=== PATIENT | female | born 1990 | race Two or more races ===

== ENCOUNTER 2017-08-04 08:09 | Emergency (ER) | payer BC ==
[2017-08-04 08:19] VITALS: BP 120/81
--- NOTE | 2017-08-04 08:52 | UC ---
Complaint Female HPI - HPI Summary HPI Summary: Dysuria, frequency, urgency, hematuria since yesterday. Denies fever, vomiting, or vaginal symptoms. Has had a few UTIs in the past, this feels consistent with those. - History Of Current Complaint Chief Complaint: [facility] Stated Complaint: FREQUENT,BURNING URINATION Time Seen by Provider: 08/04/17 08:17 Hx Obtained From: Patient ?: No Onset/Duration: Gradual Onset, Lasting Hours Timing: Constant Severity Initially: Moderate Severity Currently: Moderate Pain Intensity: 5 Character: Burning Aggravating Factor(s): Urination Alleviating Factor(s): Nothing Associated Signs And Symptoms: Positive: Negative - Allergies/Home Medications Allergies/Adverse Reactions: Allergies Allergy/AdvReac Type Severity Reaction Status Date / Time No Known Allergies Allergy Unverified 08/04/17 08:19 Home Medications: Home Medications Norgestimate-Ethinyl Estradiol [Trinessa Tablet] 1 each PO DAILY 08/04/17 [ History Confirmed 08/04/17] PMH/Surg Hx/FS Hx/Imm Hx Previously Healthy: Yes - Surgical History Surgical History: Yes Surgery Procedure, Year, and Place: nose - Family History Known Family History: Positive: Hypertension - Social History Occupation: Student Alcohol Use: Occasionally Substance Use Type: None Smoking Status (MU): Never Smoked Tobacco Review of Systems Constitutional: Negative Skin: Negative Eyes: Negative ENT: Negative Respiratory: Negative Cardiovascular: Negative Gastrointestinal: Negative Genitourinary: Dysuria, Hematuria, Frequency, Urgency Motor: Negative Neurovascular: Negative Musculoskeletal: Negative Neurological: Negative Psychological: Negative Is Patient Immunocompromised?: No All Other Systems Reviewed And Are Negative: Yes Physical Exam Triage Information Reviewed: Yes Appearance: Well-Appearing, No Pain Distress, Well-Nourished Vital Signs: Initial Vital Signs Temp 98.5 F 08/04/17 08:16 Pulse 77 08/04/17 08:16 Resp 18 08/04/17 08:16 BP 120/81 08/04/17 08:16 Pulse Ox 100 08/04/17 08:16 Vital Signs Reviewed: Yes Eye Exam: Normal Eyes: Positive: Conjunctiva Clear ENT Exam: Normal ENT: Positive: Normal ENT inspection, Hearing grossly normal, Pharynx normal, TMs normal Neck exam: Normal Respiratory Exam: Normal Respiratory: Positive: Chest non-tender, Lungs clear, Normal breath sounds, No respiratory distress, No accessory muscle use Cardiovascular Exam: Normal Cardiovascular: Positive: RRR, No Murmur Abdomen Description: Positive: No Organomegaly, Soft. Negative: CVA Tenderness (R), CVA Tenderness (L) Musculoskeletal Exam: Normal Neurological Exam: Normal Neurological: Positive: Alert Psychological Exam: Normal Skin Exam: Normal Complaint Female Dx - Differential Dx/Diagnosis Provider Diagnoses: UTI Discharge - Sign-Out/Discharge Documenting (check all that apply): Discharge - Discharge Plan Condition: Stable Disposition: HOME Prescriptions: Nitrofurantoin Macrocrystal [Nitrofurantoin] 100 mg PO BID #10 capsule Phenazopyridine 200 mg (NF) [Pyridium 200 MG tab *] 200 mg PO TID PRN #3 tab PRN Reason: Pain Patient Education Materials: Urinary Tract Infection in Women (ED) Referrals: Ronna Hernandez NP [Primary Care Provider] - Additional Instructions: Drink plenty of fluids. If you are not better in the next couple days call here or your primary care provider for follow-up. - Billing Disposition and Condition Condition: STABLE Disposition: HOME
--- NOTE | 2017-08-05 15:14 | UC ---
- Progress Note Progress Note: + E. Coli on urinalysis sensitivity pending pt on macrobid No change 08/05/2017 Discharge - Sign-Out/Discharge Documenting (check all that apply): Post-Discharge Follow Up - Discharge Plan Condition: Stable Disposition: HOME Prescriptions: Nitrofurantoin Macrocrystal [Nitrofurantoin] 100 mg PO BID #10 capsule Phenazopyridine 200 mg (NF) [Pyridium 200 MG tab *] 200 mg PO TID PRN #3 tab PRN Reason: Pain Patient Education Materials: Urinary Tract Infection in Women (ED) Referrals: Ronna Hernandez NP [Primary Care Provider] - Additional Instructions: Drink plenty of fluids. If you are not better in the next couple days call here or your primary care provider for follow-up. - Billing Disposition and Condition Condition: STABLE Disposition: HOME
== END 2017-08-04 08:53 | disposition home or self-care (01) ==
LOC: UCEAST 08:09
DX: N39.0 Urinary tract infection, site not specified (principal); B96.20 Unspecified Escherichia coli [E. coli] as the cause of diseases classified elsewhere; R31.9 Hematuria, unspecified; Z16.29 Resistance to other single specified antibiotic; Z87.440 Personal history of urinary (tract) infections
CPT/HCPCS: 81003; 87077; 87086; 87186; 99212; G0463